=== PATIENT | male | born 1950 | race Caucasian/White ===

== ENCOUNTER 2018-09-11 05:22 | Day surgery (SDC) | payer OTHER ==
[~2018-09-11] VITALS: Ht 175.3 cm; Wt 81.6 kg
--- NOTE | ~2018-09-11 | O ---
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 OPERATIVE PROCEDURE: Direct laryngoscopy and biopsy. ANESTHESIA: General endotracheal. DESCRIPTION OF PROCEDURE: The patient was taken to the operating room, placed in a supine position. General anesthesia was induced by endotracheal intubation. Once adequate general anesthesia was obtained, a laryngoscope was passed through the patient's oral cavity and oropharynx into the larynx. I visualized the piriform sinuses which were normal, although he had some edema to the right side. The supraglottic larynx on the left side had a lesion just below the aryepiglottic fold. The epiglottis was somewhat misshapen. There was a granular tumor just underneath this. A biopsy was taken with cup forceps, and cocaine solution was used for hemostasis. The vocal cords actually looked normal. He had a good airway. The lesion was derforming the left side with the epiglottis deviated towards the right side in the midline. The laryngoscope was then removed. The pharynx was suctioned. The patient was awoken and taken to recovery room in stable condition for postoperative monitoring. ��������������������������������������������� ���������������������������������������� By: ��������������������������������������������� 9 Claude Rush MD /tierney
[~2018-09-11 05:22] MED LIST: LIPITOR40 MG PO; LISINOPRIL5 MG PO; TOPROL XL25 MG PO; VENTOLIN HFA 1818 GM INH
[2018-09-11 07:21] VITALS: BP 119/92
--- NOTE | 2018-09-11 07:45 | H ---
[facility] [place] [address] HISTORY AND PHYSICAL Name: CRISTA PORRAS Room #: 150-1 [facility] M.R.#: [id number] Admission: 09/11/18 ������������������ Attend Phys: Claude Rush MD Discharge: ������������������ Date of : 52 Report #: [id number] THIS REPORT FOR: //name// CC: Brunilda Rush His procedure is scheduled for 09/11/2018. HISTORY OF PRESENT ILLNESS: The patient says that he has had no voice for 2 weeks. He has some mild dysphagia. He does not have dyspnea. He smokes a pack of cigarettes a day. PAST MEDICAL HISTORY: Otherwise significant for heart issues. MEDICATIONS: He did not bring his list of medications. ALLERGIES: He has no known drug allergies. PHYSICAL EXAMINATION: His nose was clear. His oropharynx and oral cavity were normal. He had no adenopathy or masses in his neck. Fiberoptic nasal laryngoscopy reveals an ulcerative lesion of the right larynx with little mobility and a fleshy lesion anteriorly on the left. 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 PLAN: Direct laryngoscopy and biopsy. ��������������������������������������������� <ELECTRONICALLY SIGNED> ���������������������������������������� By: Claude Rush MD ��������������������������������������������� 09/11/18 0745 1743 1821 Claude Rush MD /nt
--- NOTE | 2018-09-11 08:08 | EKG ---
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1950 Requested By: Claude Rush Order Number: [id number] MD: Abdoulaye Daniel Measurements Intervals [place] Rate: 72 P: 43 [place]: 160 QRS: 51 QRSD: 105 T: 57 QT: 396 QTc: 434 Interpretive Statements Sinus rhythm Borderline T abnormalities, anterior leads Baseline wander in lead(s) V1 No previous ECG available for comparison Electronically Signed On 09-11-2018 8:07:51 CDT by Abdoulaye Daniel [email or web address] ��������������������������������������������� <ELECTRONICALLY SIGNED> ���������������������������������������� By: Abdoulaye Daniel MD ��������������������������������������������� 09/11/18 0807 0725 4 Abdoulaye Daniel MD /SIMONA
[2018-09-11 09:23] VITALS: BP 119/92
--- NOTE | 2018-09-12 18:05 | PATH ---
[facility] [address] [place] [address] PATHOLOGY RPT PROCEDURE Name: CRISTA KAHN Room #: DEP [facility] M.R.#: [id number] ������������������ Admission: 09/11/18 ������������������ Date of : 52 Discharge: 09/11/18 Report #: [id number] Path Case #: [id number] [facility] Accession Number: [id number] . 01 Material submitted: . supraglottis - LEFT SUPRAGLOTTIS BX. Modifiers: left . 01 Clinician provided ICD-10: R49.0 D49.1 . 01 Clinical history: . Hoarseness, laryngeal tumor . 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 . (IUV:mml; 09/12/2018) QLM/09/12/2018 . 02 Comment: Examination shows a neoplastic squamous epithelial perforation predominantly present underneath a reactive squamous epithelium. Definitive foci of invasion or microinvasion are not present in the biopsy tissue. . Co-review: Dr. Jane Allison . (IUV:mml; 09/12/2018) . 02 Electronically signed: . Samaria Lehman MD, Pathologist NPI- [id number] . 01 Gross description: . Received in formalin labeled "Crista Kahn, left supraglottis BX," are 3 segments of smith soft tissue measuring 0.8 x 0.6 x 0.3 cm in aggregate dimensions and ranging from 0.3 to 0.5 cm in maximum dimension. The specimen is submitted entirely in cassette A1. (TSD; 09/11/2018) TOB/TOB . 02 Pathologist provided ICD-10: J38.7 . [address] [address] PATHOLOGY RPT PROCEDURE Name: CRISTA KAHN Room #: DEP [facility].#: [id number] ������������������ Admission: 09/11/18 ������������������ Date of : 52 Discharge: 09/11/18 Report #: [id number] Path Case #: [id number] [facility] . [id number] Specimen Comment: A courtesy copy of this report has been sent to Specimen Comment: [phone], . Specimen Comment: Report sent to / DR TILLMAN Performed at: [address], [place], [place] [id number] MD Paramjit Hernandez MD Phone: [phone] Performed at: [address] [id number] MD Samaria Lehman MD Phone: [phone]
== END 2018-09-11 10:45 | disposition home or self-care (01) ==
LOC: OR 05:22 → TBA 05:22 → OR 09:29
DX: J38.7 Other diseases of larynx (principal); I10 Essential (primary) hypertension; E78.5 Hyperlipidemia, unspecified; F17.210 Nicotine dependence, cigarettes, uncomplicated; Z95.1 Presence of aortocoronary bypass graft; Z98.41 Cataract extraction status, right eye; Z98.42 Cataract extraction status, left eye; Z98.890 Other specified postprocedural states; Z79.899 Other long term (current) drug therapy
CPT/HCPCS: 50010; 50101; 62110; 62900; 70005